=== PATIENT | female | born 1985 | race Caucasian/White ===

== ENCOUNTER 2018-10-14 20:19 | Inpatient (IN) | payer MEDICAID, SELFPAY ==
[2018-10-14 20:57] VITALS: BMI 33.3
[2018-10-14 22:04] LABS: Amnisure Test RUPTURE DETECTED (No Rupture)
[2018-10-14 22:06] LABS: Amnisure Internal Control QC ACCEPTABLE (ACCEPTABLE)
[2018-10-14] MEDS ORDERED: Magnesium Sulfate 20 GM/WATER 500 ML BAG IVPB SCH (22:30)
[2018-10-14] MEDS ORDERED: Calcium Gluconate 4.6 MEQ in Sodium Chloride 0.9% 100 ML IVPB PRN (22:59)
[2018-10-14 23:07] LABS: Hemoglobin 12.6 g/dL (12.0-16.0); Mean Corpuscular HGB CONC 33.8 g/dL (32.0-36.0); Mean Corpuscular Hemoglobin 28.9 pg (27.0-31.0); Mean Corpuscular Volume 85.6 fL (78.0-98.0); Mean Platelet Volume 8.3 fL (7.4-10.4); Platelet Count 280 thou/uL (130-400); Red Blood Cell (RBC) Count 4.34 mill/uL (4.20-5.40); White Blood Cell (WBC) Count 13.4 thou/uL (4.8-10.8)
--- NOTE | 2018-10-14 23:08 | ULT ---
ULTRASOUND OBSTETRICAL LIMITED: 10/14/18 at 9:54 p.m. HISTORY: 33-year-old female in early trimester of presents with premature rupture of membranes. Dr. Marie was present during the scanning and is aware of all the findings. FINDINGS: number: Fisher. lie: Transverse, with head to maternal right. Placenta: Posterior. No placenta previa. In the early images, there is a large soft tissue-like material at the anterior lower portion of the uterus which initially completely covers the internal cervical os. This may be a hematoma or Buf[place]- Bishop contraction. Initially, the maternal cervix is 5.5 cm in length. It has heterogeneous intermediate and low echogen icity throughout the length of its lumen, which could represent blood clots or mucus plugging. Later, towards the end the study, The soft [id number] material described above, resolves. In it s place, there are a few small, irregularly shaped soft tissue type material fragments surrounded by amniotic fluid just proximal/superior to the internal cervical os. This material probably represents blood clots. Now, there is funneling of amniotic fluid into an open endocervical canal and there are small blood c lots passing into the endocervical canal. Amniotic fluid: ABI = 17 cm. heart rate: 147 bpm. anatomy: Not evaluated. BIOMETRY: BPD 7.1 cm 28w 4d HC 26.6 cm 29w 0d AC 25.6 cm 29w 5d FL 5.3 cm 29w 0d AUA: 28w 5d EDC: 01/01/2019. LMP: 04/06/2018. Gestational age by LMP: 27w 2d EFW: 1323 g +/- 196 g (2 lb, 15 oz +/- 7 oz). IMPRESSION: 1. Early third trimester intrauterine gestation. 2. Progression of changes during the examination, ending in opening of endocervical canal with f unneling, and passage of blood clots and amniotic fluid. 3. Posterior placenta. No placenta previa. 4. lie: Transverse. 5. Estimated gestational age of 28 weeks 5 days. POS: [facility]
[2018-10-14] MEDS ORDERED: Azithromycin 250 MG TAB PO SCH (23:15)
[2018-10-14] MEDS: Betamet Acet/Betamet Na Ph 30 MG/5 ML VIAL IM SCH (23:18)
[2018-10-14] MEDS: ceFAZolin Sodium 1 GM/Dextrose 50 ML BAG IVPB SCH (23:27)
[2018-10-14 23:41] LABS: HBSAg Index 0.17 S/CO (0-0.99); Hep B Surf Ag Non-Reactive S/CO (NonReactive); Syphilis Antibody Nonreactive (Nonreactive); Syphilis Antibody Index 0.04 S/CO (<1.00 Non-Reactive)
[2018-10-14] MEDS ORDERED: Erythromycin 250 MG in Sodium Chloride 0.9% 250 ML 250 ML IVPB SCH (23:59)
[2018-10-15] MEDS: Magnesium Sulfate 20 gm/500 ml 20 GM/500 ML BAG IVPB SCH ×2 (07:21→21:40)
[2018-10-15] MEDS: ceFAZolin Sodium 1 GM/Dextrose 50 ML BAG IVPB SCH ×3 (07:21→23:59)
--- NOTE | 2018-10-15 08:02 | HP ---
PRIMARY PROVIDER: [facility]. CHIEF COMPLAINT: Leakage of fluid. HISTORY OF PRESENT ILLNESS: The patient is a 33-year-old G4, P2 female with an intrauterine at 27 weeks and 2 days, who is presenting to Labor and Delivery with complaints of leakage of fluid since about 9 o'clock this morning. The patient reports that she has been having intermittent leakage of fluid of clear watery fluid. She was seen this evening at her primary care provider's location [facility], where she was noted to have a positive AmniSure test. The patient reports that she has been experiencing some "[place] Bishop contractions." She denies any painful contractions or worsening progression of her contractions. The patient denies vaginal bleeding. She denies any recent illness, fever, fall, headache, chest pain, shortness of breath, nausea, vomiting, diarrhea, or constipation. She denies hip problems, knee problems, or muscle weakness. She denies vaginal bleeding or urinary urgency. PAST MEDICAL HISTORY: Hypothyroidism and anemia. PAST SURGICAL HISTORY: Noncontributory. ALLERGIES: PENICILLIN. SOCIAL HISTORY: Denies drug, alcohol, or tobacco use. MEDICATIONS: vitamins. OB LABS: Blood type is A negative. Antibody screen is negative. She is rubella immune. Hepatitis B surface antigen is nonreactive. RPR nonreactive. HIV nonreactive. Hemoglobin A1c 5.0. REVIEW OF SYSTEMS: Per HPI. PHYSICAL EXAMINATION: VITAL SIGNS: Blood pressure 129/84, heart rate of 93, respiratory rate of 20, and temperature 98.2. GENERAL: She appears to be in no acute distress. She is alert, oriented, cooperative, and pleasant to interact with. HEAD: Normocephalic and atraumatic. LUNGS: Clear to auscultation bilaterally. HEART: Regular rate and rhythm. ABDOMEN: Soft, gravid, and nontender. EXTREMITIES: Nontender and nonedematous. PELVIC: Her perineum on exam is moist. Vagina is moist with no pulling at time of exam. Cervix is visibly closed. Cervical exam not performed. heart tracing. Fetus is noted to be have a baseline in the 140s with moderate long-term variability. Positive accelerations. No decelerations. Tocometer showing irritability. LABORATORY DATA: The patient is noted to have a CBC with a white count of 13.4, hemoglobin of 12.6, hematocrit 37.1, and platelets of 280,000. Her AmniSure test is positive. RPR is nonreactive. Hepatitis B surface antigen nonreactive. Blood type is A negative. Antibody screen is negative. Her VPIII is negative for Trichomonas Gardnerella and Dolores. Ultrasound demonstrates a fetus in vertex presentation with an estimated weight of 2 pounds 15 ounces. Fetus lies transverse and there is no placenta previa. Cervical length is 5.5 cm. The endocervix does show some beaking. ASSESSMENT AND PLAN: The patient is a 33-year-old female, G4, P2, with an intrauterine at 27 weeks and 3 days with evidence of premature rupture of membranes. The patient will be admitted to the hospital for antibiotics for latency. The patient does have an allergy to Ancef, penicillins, and erythromycin, it is not available. She will be receiving azithromycin and Ancef for the course of her latency antibiotics. The patient also is Rh. The patient has also been given steroids for maturity and magnesium for neuroprotection. The patient has no evidence of labor at this time. The patient is Rh negative and will be receiving RhoGAM. The fetus is in transverse lie, at this time, plan for delivery would be by . Job ID: [id number]
[2018-10-15] MEDS ORDERED: Azithromycin 250 MG TAB PO SCH (09:00)
--- NOTE | 2018-10-15 09:09 | PRG ---
DATE OF SERVICE: 10/15/2018 SUBJECTIVE: The patient is a 33-year-old female admitted for premature rupture of membranes at 27 weeks on magnesium for neuroprotection, antibiotics for latency, has received 1 dose of betamethasone. Ultrasound shows a baby with a transverse back down lie to the maternal right. The patient is Rh negative. The patient reports this morning that she felt contractions from time to time, but are not painful. She denies any other abdominal tenderness, discomfort, or bleeding. OBJECTIVE: VITAL SIGNS: This morning; blood pressure is 131/74, heart rate of 103, respiratory rate of 18, and temperature 98.1. GENERAL: She appears to be in no acute distress. She is alert, oriented, cooperative, and pleasant to interact with. HEENT: Head is normocephalic and atraumatic. ABDOMEN: Soft and nontender to palpation. ASSESSMENT AND PLAN: The patient is a 33-year-old female admitted for premature rupture of membranes, on antibiotics, magnesium for latency, betamethasone for lung maturity. In reviewing her records, the patient does have a history of hypothyroidism and had been on thyroid medication in the past. There is no evidence of a TSH drawn during this and we will be drawing it today for screening of this thyroidism. Also, the patient is due for 1-hour Glucola. After discussing this with the patient, she has declined as an alternative. We will be doing Accu-Cheks, fasting, and 2 hours postprandial for the next several days. The patient is Rh negative and will be receiving RhoGAM today. Job ID: [id number]
--- NOTE | 2018-10-15 10:20 | PDOC.EVN ---
Event Note - Event Note Event Note: EGA: 27 weeks 3 days DX: PPROM Patient seen at bedside and case reviewed with Dr Marie this AM at check out ( 0800) Meds: MagSulfate for neuroprotection Ancef and Zmax (out of Erythro and PCN allergy) Celestone (2nd this PM) SONO: EFW about 1200g Back down transverse lie on sono Normal ABI on last sono S. No CTX, doing wel O. PHYSICAL: Vitals reviewed...afebrile. Ut soft, NT Monitots: reactive for EGA, no CTX pattern A/P: 27 week 3 days with PPROM on meds as above: I went over the ACOG and SMFM guidelines with her and family member in details: Staeroids also reviewed, even discussed rescue dose if needed after 1-2 weeks and if labors prior to 34 weeks. Keep mag for now until 10/16 1600 Keep with ABX SCDs in bed All questions answered
[2018-10-15] MEDS: Betamet Acet/Betamet Na Ph 30 MG/5 ML VIAL IM SCH (23:59)
--- NOTE | 2018-10-16 06:29 | PDOC.EVN ---
Event Note - Event Note Event Note: 10/16/18: APU 1 HD 3 EGA 27 weeks 4 days S/P Celestone (last one last PM) Meds: Ancef and Zmax MagSulfate S. Doing well, no CTX, good FM. Would like to get up and shower.. No VB O. VSS afebrile NAD Ut oft, NT Monitors: FHTs on monitor reviewed, 140s, reactive No CTX on [place] A/P: 27 weeks 4 days reviewed with her: 1. Stop ancef today. As erythro is not available, and has PCN allergy...we will start Omnicef po and continue ZMax until 7 days complete (10/21) 2. Mag to stop this AM/noon 3. May remove luz 4. Heplock IV 5. Stop continuous monitor and go to NST QD, FHTs BID 6. Expectant management
[2018-10-16] MEDS ORDERED: Lactated Ringer's 1,000 ML IV SCH (06:30)
[2018-10-16] MEDS ORDERED: Calcium Gluc 4.6 MEQ/10 ML (100 MG/ML) SLOW IVP PRN (06:34)
[2018-10-16] MEDS ORDERED: Magnesium Sulfate 20 gm/500 ml 20 GM/500 ML BAG IVPB SCH (06:45)
[2018-10-16] MEDS: Azithromycin 250 MG TAB PO SCH (09:02)
[2018-10-16] MEDS: Cefdinir 300 MG CAP PO SCH ×2 (09:02→21:07)
[2018-10-16] MEDS: Acetaminophen 500 MG TAB PO PRN (10:15)
[2018-10-16] MEDS ORDERED: Lactinex Tablet PO SCH (20:15)
[2018-10-17 01:25] LABS: Chlamydia by PCR Not Detected (NotDetected); GC by PCR Not Detected (NotDetected)
--- NOTE | 2018-10-17 09:15 | PRG ---
DATE OF SERVICE: 10/17/2018 ANTEPARTUM PROGRESS NOTE SUBJECTIVE: The patient is a 33-year-old female, G4, P2, with an intrauterine at 27 weeks and 5 days, diagnosed with premature rupture of membranes on 10/14/2018. Today, hospital day 4, the patient denies any fever, abdominal pain, or vaginal bleeding. She continued to have intermittent leakage of fluid. OBJECTIVE: VITAL SIGNS: Blood pressure is 123/69, heart rate of 94, respiratory rate of 16, and temperature 98.2. GENERAL: She appears to be in no acute distress. She is alert and oriented, cooperative, and pleasant to interact with. ABDOMEN: Soft, nontender to palpation. Most recent heart tracing demonstrates the fetus with a baseline in the 140s with moderate long-term variability and appropriate for a 27-week gestation. ASSESSMENT AND PLAN: The patient is a 33-year-old multiparous female with an intrauterine at 27 weeks and 5 days, who is now on hospital day 4. She is status post betamethasone for lung maturity, magnesium for neuroprotection, and currently on azithromycin and Omnicef for latency as the patient is allergic to penicillin and the hospital is out of erythromycin. Fetus is reassuring for gestational age. The patient has been given RhoGAM also for her Rh negative status. The patient was due for a Glucola, which she has declined; however, Accu-Cheks have been elevated but acceptable given the recent use of steroids. Plan at this time is to repeat a series of Accu-Cheks in about a week in place of a Glucola challenge. The patient will continue in-house management for the foreseeable future. There is no evidence of labor or infection or abruption at this time. Job ID: [id number]
[2018-10-17] MEDS: Prenatal Vitamin 1 TAB PO SCH (10:18)
[2018-10-17] MEDS: Azithromycin 250 MG TAB PO SCH (10:18)
[2018-10-17] MEDS: Cefdinir 300 MG CAP PO SCH ×2 (10:18→21:25)
[2018-10-17] MEDS: Lactinex Tablet PO SCH (10:18)
--- NOTE | 2018-10-18 06:46 | PDOC.EVN ---
Event Note - Event Note Event Note: S: Doing well. Continued leaking overnight. Denies pain, bleeding, ctx. +FM O: AFVSS Gen - AAO, NAD Abd - soft, gravid, NTTP Ext - no edema A/P: 33 y/o at 27w6d, HD5. Doing well without complaints. Continue omnicef and zithromax.
[2018-10-18] MEDS ORDERED: Azithromycin 250 MG TAB ONE (10:04)
[2018-10-18] MEDS ORDERED: Prenatal Vitamin 1 TAB ONE (10:06)
[2018-10-18] MEDS ORDERED: Docusate Calcium (SURFAK) 240 MG CAP ONE (10:15)
[2018-10-18] MEDS: Lactinex Tablet PO SCH (10:20)
[2018-10-18] MEDS: Azithromycin 250 MG TAB PO SCH (10:20)
[2018-10-18] MEDS: Cefdinir 300 MG CAP PO SCH ×3 (10:20→20:56)
[2018-10-18] MEDS: Prenatal Vitamin 1 TAB PO SCH (10:20)
[2018-10-18] MEDS ORDERED: Docusate 100 MG CAP PO PRN (13:44)
[2018-10-18] MEDS ORDERED: Docusate Calcium (SURFAK) 240 MG CAP PO SCH (13:45)
--- NOTE | 2018-10-18 17:40 | PDOC.EVN ---
Event Note - Event Note Event Note: @1740 NST check EGA 27 weeks 6 days NST appropriate for age
--- NOTE | 2018-10-18 20:39 | PDOC.EVN ---
Event Note - Event Note Event Note: Patient seen at bedside Stable...no CTX No fevers Plan reviewed....continue ABX for PPROM until 10/21 (7 days)
[2018-10-18] MEDS: Docusate Calcium (SURFAK) 240 MG CAP PO SCH (20:55)
--- NOTE | 2018-10-19 04:54 | PDOC.EVN ---
Event Note - Event Note Event Note: HD4: PPROM EGA: 28 weeks 0 days Meds: Omnicef/Zmax until 10/21 S. Resting, still with some leakage O. VSS afebrile...vitals reviewed NST yesterday appropriate for age, no decels A/P: 28 weeks 0 days, multip, with PPROM...s/p Steroids and mag for neuroprotection: 1. Continue ABX until 10/21, no current evidence metritis/IAI 2. If labors prior to 32 weeks, restart Mag for neuroprotection 3. Last sono= back down tranverse lie; resono if labors to check presentation.
[2018-10-19] MEDS: Azithromycin 250 MG TAB PO SCH (10:41)
[2018-10-19] MEDS: Cefdinir 300 MG CAP PO SCH ×2 (10:41→20:59)
[2018-10-19] MEDS: Prenatal Vitamin 1 TAB PO SCH (10:41)
[2018-10-19] MEDS: Lactinex Tablet PO SCH (10:42)
[2018-10-19] MEDS: Docusate Calcium (SURFAK) 240 MG CAP PO SCH ×2 (10:43→20:59)
--- NOTE | 2018-10-20 08:05 | PDOC.EVN ---
Event Note - Event Note Event Note: S: Doing well without complaints. No leaking until this morning and only a small amount. Denies fever, chills, abdominal pain, ctx, VB or other concerns. +FM. O: AFVSS Gen - AAO, NAD Abd - gravid, NTTP Ext - no edema NST pending. A/P: 33 y/o at 28w1d with PPPROM, HD5. Continue Omnicef/Azithromycin until 10/21.
[2018-10-20] MEDS: Cefdinir 300 MG CAP PO SCH ×2 (10:01→21:05)
[2018-10-20] MEDS: Azithromycin 250 MG TAB PO SCH (10:01)
[2018-10-20] MEDS: Docusate Calcium (SURFAK) 240 MG CAP PO SCH ×2 (10:02→21:05)
[2018-10-20] MEDS: Prenatal Vitamin 1 TAB PO SCH (10:02)
[2018-10-20] MEDS: Lactinex Tablet PO SCH (10:06)
[2018-10-21] MEDS: Lactinex Tablet PO SCH (09:14)
[2018-10-21] MEDS: Azithromycin 250 MG TAB PO SCH (09:14)
[2018-10-21] MEDS: Prenatal Vitamin 1 TAB PO SCH (09:15)
[2018-10-21] MEDS: Cefdinir 300 MG CAP PO SCH (09:15)
[2018-10-21] MEDS: Docusate Calcium (SURFAK) 240 MG CAP PO SCH (09:15)
--- NOTE | 2018-10-21 09:34 | PRG ---
DATE OF SERVICE: 10/21/2018 SUBJECTIVE: The patient is a 33-year-old female with an intrauterine at 28 weeks and a day, who is now hospital day 8, for premature rupture of membranes. The patient is status post betamethasone antibiotics for latency and magnesium for neuroprotection. The patient reports this morning that she has been feeling well. Denies any uterine contractions, abdominal pain, or vaginal bleeding. She reports that she has been having very minimal leakage of fluid over the last 24 hours. OBJECTIVE: VITAL SIGNS: Blood pressure 117/75, heart rate of 104, respiratory rate 16, temperature 98. GENERAL: She appears to be in no acute distress. She is alert, oriented, cooperative, and pleasant to interact with. ABDOMEN: Soft and nontender. Gravid. EXTREMITIES: Nontender, nonedematous. DIAGNOSTIC DATA: heart tracing shows a baseline in the 150s with moderate long-term variability positive 15 x 15 accelerations and no decelerations. Tocometer is without contractions. ASSESSMENT AND PLAN: The patient is a 33-year-old female with an intrauterine at 28 weeks and a day with a diagnosis of premature rupture of membranes. We will continue in-house management at this time. Fetus has a category 1 tracing. Job ID: [id number]
--- NOTE | 2018-10-21 13:56 | PDOC.EVN ---
Event Note - Event Note Event Note: NST reviewed: Appropriate for EGA of 28 weeks..no decels, rate of 150-160. rate occasionally 170s due to accels...afebrile. At bedside. Progress note in chart
[2018-10-22] MEDS: Docusate Calcium (SURFAK) 240 MG CAP PO SCH ×3 (04:41→21:57)
--- NOTE | 2018-10-22 07:11 | PDOC.EVN ---
Event Note - Event Note Event Note: 28 weeks 3 days L&D Bed 10 HD8 S. Stable...no new complaints, states leaking less O. VSS afebrile A/P: continue in house OBS for PPROM...s/p celestone and oral ABX x 7 days Back down transverse lie last sono
[2018-10-22] MEDS: Prenatal Vitamin 1 TAB PO SCH (09:56)
[2018-10-22] MEDS: Lactinex Tablet PO SCH (09:56)
--- NOTE | 2018-10-23 01:05 | PDOC.EVN ---
Event Note - Event Note Event Note: 28 4/7 weeks. Sleeping. FHTs reasssuring earlier in shift. VSS. AF. A: PSROM s/p steroids and ABX. P: Continue present management, deliver for labor, chorioamnionitis or concern.
[2018-10-23] MEDS: Docusate Calcium (SURFAK) 240 MG CAP PO SCH ×2 (08:53→22:04)
[2018-10-23] MEDS: Prenatal Vitamin 1 TAB PO SCH (08:53)
--- NOTE | 2018-10-23 13:07 | ULT ---
SONOGRAPHIC BIOPHYSICAL PROFILE EXAM: History: Pre-mature rupture of membranes. FINDINGS: Good tone and breathing and gross movements were demonstrated. Amniotic fluid index is 10 .2. IMPRESSION: Sonographic biophysical profile score is 8/8. POS: [facility]
[2018-10-23] MEDS: Lactinex Tablet PO SCH (15:23)
--- NOTE | 2018-10-24 08:38 | PRG ---
DATE OF SERVICE: 10/24/2018 SUBJECTIVE: The patient is a 33-year-old female with an intrauterine at 28 weeks and 5 days, who is here in the hospital for expectant management and routine monitoring due to premature rupture of membranes. The patient denies abdominal pain or uterine contractions. She reports she continues to have a small amount of leaking of fluid. The patient also denies asymmetric swelling. A BPP was performed yesterday, which was 8/8 with fluid level at 10 cm down from 17 at time of admission. OBJECTIVE: VITAL SIGNS: Blood pressure 133/73, temperature 98.0, pulse of 107, respiratory rate of 18. GENERAL: She appears to be in no acute distress. She is alert, oriented, cooperative, and pleasant to interact with. HEAD: Normocephalic, atraumatic. ABDOMEN: Soft, gravid, and nontender. EXTREMITIES: Nontender, nonedematous, and symmetrical. ASSESSMENT AND PLAN: The patient is a 33-year-old female with an intrauterine at 28 weeks and 5 days, here for premature rupture of membranes, status post betamethasone, status post antibiotics for latency and status post magnesium for neuro protection. We will continue expectant management until we were worried that there were signs of abruption, labor, or infection, which she does not have at this time. Job ID: [id number]
[2018-10-24] MEDS: Lactinex Tablet PO SCH (09:16)
[2018-10-24] MEDS: Docusate Calcium (SURFAK) 240 MG CAP PO SCH ×2 (09:16→21:30)
[2018-10-24] MEDS: Prenatal Vitamin 1 TAB PO SCH (09:16)
--- NOTE | 2018-10-24 16:42 | PDOC.EVN ---
Event Note - Event Note Event Note: Patient stable to move to PP at this time. Vtx on BPP performed yesterday.
--- NOTE | 2018-10-25 07:59 | PDOC.EVN ---
Event Note - Event Note Event Note: S: Doing well this morning, much happier in larger room. No VB, ctx. Occasional cramping. Continues to leak a small amount. +FM. No new complaints. O: AFVSS Gen - AAO, NAD Abd - soft, gravid, NTTP A/P: HD10 with P3ROM. S/p celestone, antibiotics. Continue expectant management at this time.
--- NOTE | 2018-10-25 08:01 | PDOC.EVN ---
Event Note - Event Note Event Note: After long discussion with patient, family, and nurse management, the patient was moved back to previous room with understanding that she may need to move to a smaller room at any point.
[2018-10-25] MEDS: Acetaminophen 500 MG TAB PO PRN (08:08)
[2018-10-25] MEDS: Lactinex Tablet PO SCH (09:33)
[2018-10-25] MEDS: Prenatal Vitamin 1 TAB PO SCH (09:33)
[2018-10-25] MEDS: Docusate Calcium (SURFAK) 240 MG CAP PO SCH ×2 (09:33→21:30)
--- NOTE | 2018-10-26 08:36 | PRG ---
DATE OF SERVICE: 10/26/2018 ANTEPARTUM NOTE SUBJECTIVE: The patient is a 33-year-old female who was admitted at 28 weeks for premature rupture of membranes. She is now hospital day 11 with a gestational age of 29 weeks and zero day today. The patient is status post betamethasone and antibiotics. The patient reports today that she is tolerating p.o., voiding on her own, has no abdominal pain. She does report that she has had some pink stains when she wiped after going to the bathroom occasionally. OBJECTIVE: VITAL SIGNS: Blood pressure 124/73, temperature 98.6, pulse of 90, respiratory rate of 20. GENERAL: She appears to be in no acute distress. She is alert, oriented, cooperative, pleasant to interact with. HEAD: Normocephalic, atraumatic. ABDOMEN: Soft, gravid, and nontender. EXTREMITIES: Nontender, nonedematous. heart tracing was reviewed and found to be in the 150s with moderate long-term variability and positive 10 x 10 and 15 x 15 accelerations with no decelerations and tocometer shows no evidence of regular contractions. ASSESSMENT AND PLAN: The patient is a 33-year-old female, now hospital day 11, here for expectant management with premature rupture of membranes, status post betamethasone and antibiotics. The patient's fetus is vertex and has a category one tracing. Job ID: [id number]
[2018-10-26] MEDS: Prenatal Vitamin 1 TAB PO SCH (08:53)
[2018-10-26] MEDS: Lactinex Tablet PO SCH (08:53)
[2018-10-26] MEDS: Docusate Calcium (SURFAK) 240 MG CAP PO SCH ×2 (08:53→20:43)
--- NOTE | 2018-10-27 07:12 | PDOC.EVN ---
Event Note - Event Note Event Note: Resting, no complaints. VSS AF Abdomen soft, NT. NSTs are reassuring. A: 28 wks, PSROM, s/p celestone x2, MgS04, and po ABX x 7 days. P:Cont. expectant management. Deliver for labor, chorioamnionitis or concern.
[2018-10-27] MEDS: Prenatal Vitamin 1 TAB PO SCH (09:07)
[2018-10-27] MEDS: Docusate Calcium (SURFAK) 240 MG CAP PO SCH ×2 (09:07→20:58)
[2018-10-27] MEDS: Lactinex Tablet PO SCH (09:07)
--- NOTE | 2018-10-28 08:04 | PRG ---
DATE OF SERVICE: 10/28/2018 TIME OF SERVICE: 0730 hours. SUBJECTIVE: The patient is a G3, P2, at 29 weeks and 2 days with rupture of membranes for 13 days. She has undergone corticosteroid therapy, magnesium sulfate for tocolysis and neuroprotection, and antibiotics for latency with rupture of membranes. The patient is resting comfortably and has no complaints. She reports an active fetus and occasional leakage of fluid. OBJECTIVE: VITAL SIGNS: Temperature is 98.3, T-max 98.3, pulse 98, respirations 18, and blood pressure 122/68. ABDOMEN: Soft and nontender without rebound or guarding. Perineum is dry at this time. EXTREMITIES: No clubbing, cyanosis, or edema. Nonstress test performed on 10/27, was interpreted by myself as reactive category I. IMPRESSION: A 29 weeks and 2 days with prolonged rupture of membranes, now in latency without evidence of labor, status post steroids, status post antibiotics for latency. PLAN: 1. Continued hospitalization on unit. 2. Repeat biophysical profile today, last one was done on 10/23. 3. Expectant management until 34 weeks' gestation, when if labor has not onset and fetus is in vertex presentation, we will proceed with induction of labor. 4. Repeat corticosteroids on or about 11/14/2018, 4 weeks post initiation. Job ID: [id number]
[2018-10-28] MEDS: Docusate Calcium (SURFAK) 240 MG CAP PO SCH ×2 (09:01→21:45)
[2018-10-28] MEDS: Prenatal Vitamin 1 TAB PO SCH (09:01)
--- NOTE | 2018-10-28 09:58 | ULT ---
BIOPHYSICAL PROFILE ULTRASOUND: HISTORY: A 29-week, pre-term, for followup fluid and biophysical profile evaluation. FINDINGS: A single viable intrauterine fetus is noted in breech presentation. Left-sided placenta without evid ence for placenta previa. heart rate 155 beats per minute. Cervical length 4.4 cm. tone, breathing, movements, and amniotic fluid were all evaluated with a biop hysical profile score of 8/8, normal. IMPRESSION: 1. Breech presentation, which is different from examination of 10/23/2018, at which time it was select at [place]. 2. biophysical profile score 8/8. POS: [facility]
[2018-10-28] MEDS: Lactinex Tablet PO SCH (11:11)
--- NOTE | 2018-10-29 08:24 | PRG ---
DATE OF SERVICE: 10/29/2018 ANTEPARTUM PROGRESS NOTE SUBJECTIVE: The patient is a 33-year-old female, here hospital day 13 for premature rupture of membranes, now 29 weeks and 3 days gestation. The patient denies any abdominal tenderness, fever, foul discharge, or bleeding. The patient does report she leaks from time to time still. BPP was performed yesterday and was 8/8 with ABI of 7 and baby has turned to be angel breech. OBJECTIVE: VITAL SIGNS: Blood pressure was 122/68, temperature 98.1, pulse of 98, and respiratory rate of 18. GENERAL: She appears to be in no acute distress. She is alert and oriented, cooperative and pleasant to interact with. HEENT: Head is normocephalic, atraumatic. ABDOMEN: Soft. Fundus is nontender and gravid. EXTREMITIES: Nontender, nonedematous. ASSESSMENT AND PLAN: The patient is hospital day 13 at 29 weeks and 3 days, here for premature rupture of membranes, status post betamethasone and antibiotics. BPP is reassuring, however, baby is now presenting angel breech. Should she experience anything that is necessitating immediate delivery, a will be mode of delivery at this time. I have reviewed with the patient just signs and symptoms of chorioamnionitis as the patient is 2 weeks out and does increase her risk for chorioamnionitis in her present state. Job ID: [id number]
[2018-10-29] MEDS: Prenatal Vitamin 1 TAB PO SCH (08:43)
[2018-10-29] MEDS: Docusate Calcium (SURFAK) 240 MG CAP PO SCH ×2 (08:43→21:18)
[2018-10-29] MEDS: Lactinex Tablet PO SCH (08:43)
--- NOTE | 2018-10-30 07:45 | PDOC.EVN ---
Event Note - Event Note Event Note: S: Patient doing well. No new complaints. Occasional cramping. O: AFVSS Gen - AAO, NAD Abd - soft, gravid, NTTP NST pending A/P: P3ROM, HD#14 s/p celestone s/p antibiotics NST q shift
[2018-10-30] MEDS: Docusate Calcium (SURFAK) 240 MG CAP PO SCH ×2 (09:08→21:06)
[2018-10-30] MEDS: Lactinex Tablet PO SCH (09:08)
[2018-10-30] MEDS: Prenatal Vitamin 1 TAB PO SCH (09:08)
--- NOTE | 2018-10-31 07:10 | PDOC.EVN ---
Event Note - Event Note Event Note: Resting comfortably. VSS AF Abdomen is soft, gravid, NT. NSTs have been reassuring. A/P: 29 5/7 weeks, PSROM s/p steroids, MgS04 and ABX. Cont. expectant mgmt. Deliver for chorioamnionitis, labor or concern.
[2018-10-31] MEDS: Docusate Calcium (SURFAK) 240 MG CAP PO SCH ×2 (10:19→20:59)
[2018-10-31] MEDS: Prenatal Vitamin 1 TAB PO SCH (10:19)
[2018-10-31] MEDS: Lactinex Tablet PO SCH (10:19)
[2018-11-01] MEDS: Acetaminophen 500 MG TAB PO PRN ×2 (02:05→08:01)
--- NOTE | 2018-11-01 07:57 | PDOC.LDPN ---
Labor & Delivery Progress Note - Subjective Subjective: comfortable, loss of fluid (bloody fluid over night x 2, no contractions but some cramping this AM, no fever or chills) - Objective Vital signs reviewed and normal: yes General: NAD, resting Uterine fundus: non tender FHT: category 1 - Assessment (1) 29 to 30 weeks gestation of Code(s): [id number] - Current Visit: Yes Status: Acute Plan: continue plan of care -: 29.6 weeks PPROM, sp latency abx and steroids for FLM. Blood tinged fluid noted in the early hours of the AM, no recent ctx on toco and FHT reassuring. Discussed continue close monitoring for si/sx of labor or other or maternal indications for delivery. BPP today.
[2018-11-01] MEDS: Prenatal Vitamin 1 TAB PO SCH (08:01)
[2018-11-01] MEDS: Docusate Calcium (SURFAK) 240 MG CAP PO SCH ×2 (08:02→21:05)
[2018-11-01] MEDS: Lactinex Tablet PO SCH (09:29)
--- NOTE | 2018-11-01 11:13 | ULT ---
BIOPHYSICAL PROFILE: Date: 11/01/18 HISTORY: Premature rupture of membranes. FINDINGS: Real-time imaging of the pelvis shows a single, viable intrauterine . position is vert ex. The placenta shows no evidence of previa. heart rate is 147 beats/minute. Amniotic fluid index is very reduced with amniotic fluid index of 2.7; however, there is a pocket of fluid that is greater than 2.0 cm. biophysical profile score is as follows: tone = 2 breathing = 2 movements = 2 Amniotic fluid = 2 IMPRESSION: biophysical profile is 8 of a possible 8. Please note that although the amniotic fluid is score d as a 2 because it meets criteria of a pocket of 2.0 cm, it is severely reduced. POS: [facility]
[2018-11-02] MEDS: Acetaminophen 500 MG TAB PO PRN (06:36)
--- NOTE | 2018-11-02 08:36 | PRG ---
DATE OF SERVICE: 11/02/2018 TIME OF SERVICE: 0715 hours. SUBJECTIVE: Ms. Putnam is now G2, P0, at 30 weeks and 0 days with PPROM for approximately 2 weeks. She reports occasional uterine irritability. She has blood-tinged fluid noted that has been stable for the past 24 hours. OBJECTIVE: VITAL SIGNS: Vital signs are stable. The patient remains afebrile. T-max 98.1, blood pressure 118/72, pulse 85, and respirations 18. LUNGS: Clear to auscultation bilaterally. HEART: Regular rate and rhythm. ABDOMEN: Soft and nontender without rebound or guarding. GENITALIA: Vulva without lesions. Vagina: The patient has small amount of bloody clearish fluid on Sarah-Pad. EXTREMITIES: No clubbing, cyanosis, or edema. Nonstress test was carried out yesterday, which was reactive. BPP was 8/8 with vertex presentation with low level of amniotic fluid, but largest pocket was greater than 2 cm. IMPRESSION: 30 weeks and 0 days premature rupture of the membranes, no evidence of active labor, vertex presentation, status post antibiotics and corticosteroids. PLAN: Continue simon rest with daily NSTs. Repeat corticosteroids at four weeks post PPROM. Anticipate spontaneous vaginal delivery of presentation remains vertex. Induction of labor at 34 weeks gestation if no onset of labor prior. Job ID: [id number]
[2018-11-02] MEDS: Lactinex Tablet PO SCH (09:22)
[2018-11-02] MEDS: Docusate Calcium (SURFAK) 240 MG CAP PO SCH ×2 (09:22→21:58)
[2018-11-02] MEDS: Prenatal Vitamin 1 TAB PO SCH (09:22)
[2018-11-03] MEDS: Acetaminophen 500 MG TAB PO PRN ×2 (00:20→08:34)
--- NOTE | 2018-11-03 07:29 | PDOC.EVN ---
Event Note - Event Note Event Note: Resting comfortably. Continues to have leaking with spotting. Active FM. Last BPP on 11/01/18 was 8/8 with 2 cm pocket seen. Vtx presentation. VSS AF NSTs q shift remain reassuring. Assessment: 30 10/06 PSROM s/p steroids, ABX and MgS04. Plan: Cont. expectant mgmt. Deliver for chorioamnionitis, concern.
[2018-11-03] MEDS: Docusate Calcium (SURFAK) 240 MG CAP PO SCH ×2 (08:35→23:06)
[2018-11-03] MEDS: Prenatal Vitamin 1 TAB PO SCH (08:35)
[2018-11-03] MEDS: Lactinex Tablet PO SCH (09:31)
--- NOTE | 2018-11-04 07:55 | PRG ---
DATE OF SERVICE: 11/04/2018 SUBJECTIVE: Ms. Putnam is 33-year-old, now at 30 weeks and 2 days with prolonged rupture of membranes. She has no complaints. She states she has noted somewhat less movement in the last 12 hours. She has had slight vaginal discharge. She has no contractions. OBJECTIVE: VITAL SIGNS: T-max 98.0, pulse 92, respirations 18, blood pressure 118/72. HEENT: Within normal limits. LUNGS: Clear to auscultation bilaterally. HEART: Regular rate and rhythm. PELVIC: Fundus is 29 cm. FHTs are 130s to 140s. Perineum is dry. EXTREMITIES: No clubbing, cyanosis, or edema. IMPRESSION: rupture of membranes with low ABI, doing BPP approximately 2 times a week. PLAN: Continue current course. Anticipate re-dosing steroids in mid October if remains . Anticipate repeat BPP on 11/05. Job ID: [id number]
[2018-11-04] MEDS: Docusate Calcium (SURFAK) 240 MG CAP PO SCH ×2 (09:30→21:57)
[2018-11-04] MEDS: Prenatal Vitamin 1 TAB PO SCH (09:30)
[2018-11-04] MEDS: Lactinex Tablet PO SCH (13:29)
--- NOTE | 2018-11-04 17:34 | PDOC.EVN ---
Event Note - Event Note Event Note: Long discussion with pt. Now 30 2/7 weeks. Tearful, anxious over current situation and who received for session of chemotherapy for testicular cancer. Nature of expectant management with PSROM, steroids x2, antibiotics and MgSO4 neuroprotection reviewed. Reassured as to present situation. Cont. present management.
--- NOTE | 2018-11-05 07:22 | PDOC.EVN ---
Event Note - Event Note Event Note: Resting comfortably. VSS AF Tracings remain reassuring. A: 30 3/7 weeks, PROM, s/p steroids, ABX and MgS04 P: Cont. presnt management, for BPP today.
--- NOTE | 2018-11-05 08:43 | ULT ---
BIOPHYSICAL PROFILE: History: History of pre-term rupture or membranes. Comparison: 11-01-18 FINDINGS: Amniotic fluid index has decreased to 1.1 consistent with severe oligohydramnios. tone, b reathing, and movement were all within normal limits. biophysical profile score is 6 out of 8 with abnormal low ABI of 1.1, evidence for very severe oligohydramnios. A verbal report was given to nurse Diaz by Yajaira Douglass, the electroneurodiagnostic technologist at the time of the study. POS: [facility]
[2018-11-05] MEDS: Prenatal Vitamin 1 TAB PO SCH (09:21)
[2018-11-05] MEDS: Docusate Calcium (SURFAK) 240 MG CAP PO SCH (09:21)
[2018-11-05] MEDS: Lactinex Tablet PO SCH (09:21)
--- NOTE | 2018-11-06 08:07 | PRG ---
DATE OF SERVICE: 11/06/2018 SUBJECTIVE: The patient is a 33-year-old female, who was admitted to the hospital on 10/15/2018. She now is 30 weeks and 3 days , status post steroids and antibiotics for latency. Over the weekend, the patient had experienced significant bleeding that has since drastically reduced. This morning, the patient reports that she does still have some pink-tinged fluid leaking and a little bit of cramping , but nothing that was significant to keep her awake at night. The patient denies fever. Denies feeling ill. OBJECTIVE: VITAL SIGNS: This morning, blood pressure 140/73, heart rate of 82, respiratory rate of 18, and temperature 98.7. GENERAL: She appears to be in no acute distress. She is alert and oriented, cooperative and pleasant to interact with. HEENT: Head is normocephalic, atraumatic. ABDOMEN: Soft, gravid, and nontender to palpation. EXTREMITIES: Nontender, nonedematous. Most recent NST last night showed the fetus in the 150s with moderate long-term variability, positive 15 x 15 accelerations, no decelerations. Tocometer is not showing any contraction pattern. BPP was performed yesterday and was noted to be 6/8 2 off for for fluid, fetus cephalic. ASSESSMENT AND PLAN: The patient is a 33-year-old female, who now is hospital day #23 with an intrauterine now at 30 weeks and 4 days. NST is reactive. There are no signs of acute abruption, though the patient has probably experienced partial small abruption that has since resolved. There is no evidence of infection or distress or labor. We will continue in-house hospital expectant management. Fetus is vertex at this time. Job ID: [id number] [facility]
[2018-11-06] MEDS: Lactinex Tablet PO SCH (09:38)
[2018-11-06] MEDS: Prenatal Vitamin 1 TAB PO SCH (09:38)
--- NOTE | 2018-11-07 06:11 | PDOC.EVN ---
Event Note - Event Note Event Note: 11/07/18: EGA 30 weeks 4 days DX: PPROM, cephalic last check; oligo S. No further VB, doing well. Good FM o. AFEBRILE...no ctx no VB A/P: PPROM...continue inhouse obs. s/p steroids. Consider redose steroids if labors under 34 weeks
[2018-11-07] MEDS: Lactinex Tablet PO SCH (09:06)
[2018-11-07] MEDS: Docusate Calcium (SURFAK) 240 MG CAP PO SCH (09:16)
[2018-11-07] MEDS: Prenatal Vitamin 1 TAB PO SCH (09:16)
[2018-11-08] MEDS: Docusate Calcium (SURFAK) 240 MG CAP PO SCH ×3 (04:16→16:46)
--- NOTE | 2018-11-08 07:39 | PDOC.EVN ---
Event Note - Event Note Event Note: Doing well this morning. Had some ctx yesterday but nothing regular. Continues to have minimal leaking and spotting. +FM. O: AFVSS Gen - AAO, NAD Abd - gravid, NTTP A/P: HD23, now 30w5d. S/p celestone, abx. Continue expectant management. NST q shift.
[2018-11-08] MEDS: Prenatal Vitamin 1 TAB PO SCH (11:36)
[2018-11-08] MEDS: Lactinex Tablet PO SCH (11:36)
[2018-11-09] MEDS: Docusate Calcium (SURFAK) 240 MG CAP PO SCH (18:04)
[2018-11-09] MEDS: Prenatal Vitamin 1 TAB PO SCH (18:04)
[2018-11-09] MEDS: Lactinex Tablet PO SCH ×2 (18:04→20:24)
[2018-11-10] MEDS: Docusate Calcium (SURFAK) 240 MG CAP PO SCH ×2 (04:09→08:37)
--- NOTE | 2018-11-10 07:42 | PDOC.EVN ---
Event Note - Event Note Event Note: S: Doing well this morning. No complaints. No bleeding, cramping or other concerns. O: AFVSS Gen -AAO, NAD Abd - gravid, NTTP Ext - no edema NST pending this morning; yesterday AGA reactive A/P: 31w0d with P3ROM, now HD 25. Continue expectant management.
[2018-11-10] MEDS: Lactinex Tablet PO SCH (08:37)
[2018-11-10] MEDS: Prenatal Vitamin 1 TAB PO SCH (08:37)
--- NOTE | 2018-11-10 09:48 | PRG ---
DATE OF SERVICE: 11/09/2018 SUBJECTIVE: The patient is a 33-year-old female who is now hospital day 26, admitted for premature rupture of membranes at 27 weeks. The patient is status post steroids, antibiotics, and magnesium for neuroprotection. The patient's course has been complicated by isolated incident of bleeding, which has since resolved to just some blood-stained fluid when she is leaking. The patient has no complaints. She denies any abdominal pain, vaginal bleeding, fever, or regular contractions. PHYSICAL EXAMINATION: VITAL SIGNS: Blood pressure 127/64, heart rate of 83, respiratory rate 18, and temperature 97.8. GENERAL: She appears to be in no acute distress. She is alert, oriented, cooperative, and pleasant to interact with. HEENT: Head is normocephalic, atraumatic. ABDOMEN: Gravid, soft, nontender. EXTREMITIES: Nontender, nonedematous. Her heart tracing demonstrates a fetus with a baseline in the 140s with moderate long-term variability, positive 15 x 15 accelerations, no decelerations. No contractions noted on the monitor. Her last BPP was 6/8 performed on 11/05/2018 with two of her fluid at 1 cm. ASSESSMENT AND PLAN: The patient is a 33-year-old female with an intrauterine at 31 weeks, admitted for premature rupture of membranes. There is no evidence of labor, abruption, or infection at this time. We will continue in-house management. Job ID: [id number]
--- NOTE | 2018-11-10 13:49 | ULT ---
ULTRASOUND OB LIMITED ULTRASOUND BIOPHYSICAL PROFILE: HISTORY: premature rupture of membranes. COMPARISON: [facility] 11/05/2018. FINDINGS: Biophysical profile score is 6/8 with a score of 0 for amniotic fluid. position is vertex and placenta is anterior. Severe oligohydramnios. The heart rate is documented at 153 b.p.m. Fet al weight is 4 pounds 3 ounces, 69th percentile. BIOMETRY: Biparietal diameter 8.03 cm, 32 weeks 2 days Head circumference 29.23 cm, 32 weeks 2 days Abdominal circumference 28.41 cm, 32 weeks, 3 days Femur length 6.01 cm, 31 weeks 2 days The estimated weight is 4 pounds 3 ounces, 69th percentile. Single live intrauterine , average ultrasound age 32 weeks 1 day, estimated date of delivery 01/04/2019. IMPRESSION: Viable intrauterine with minimal amniotic fluid with biophysical profile score of 6/8, scor ing 0 for amniotic fluid. POS: [facility]
[2018-11-11] MEDS: Prenatal Vitamin 1 TAB PO SCH (09:00)
[2018-11-11] MEDS: Docusate Calcium (SURFAK) 240 MG CAP PO SCH ×2 (09:00→23:40)
[2018-11-11] MEDS: Lactinex Tablet PO SCH (09:00)
--- NOTE | 2018-11-11 09:05 | PRG ---
DATE OF SERVICE: 11/11/2018 SUBJECTIVE: The patient is a 33-year-old female, hospital day 28, admitted for premature rupture of membranes in her 27th week of . The patient has no complaints. Yesterday, we performed a growth ultrasound and BPP. The patient was noted to have a fetus in 69th percentile and a BPP of 6/8 with an ABI of 2. The patient this morning has no complaints. She denies any vaginal bleeding, any uterine contractions, any fever or state of illness. OBJECTIVE: VITAL SIGNS: Blood pressure 129/76, heart rate is 71, respiratory rate 16, and temperature 98.2. GENERAL: She appears to be in no acute distress. She is alert, oriented, cooperative, and pleasant to interact with. HEENT: Head is normocephalic and atraumatic. ABDOMEN: Soft, gravid, and nontender. EXTREMITIES: Nontender and nonedematous. NST is performed noted to have a baseline in the 140s with moderate long-term variability, positive 15 x 15 accelerations, no decelerations. ASSESSMENT AND PLAN: The patient is a 33-year-old female, now hospital day 28 with an intrauterine at 31 weeks and 2 days. The patient is status post steroids, antibiotics for latency, and magnesium for seizure prophylaxis. We will continue in-house management. There is no evidence of abruption, labor, or chorioamnionitis at this time. Fetus has a category 1 tracing. Fetus has a reassuring BPP and reactive NST. Fetus is growing appropriately. We will continue in-house management until indication for delivery. Job ID: [id number]
--- NOTE | 2018-11-12 07:52 | PDOC.EVN ---
Event Note - Event Note Event Note: S: Doing well this morning, no new complaints. O: AFVSS Gen - AAO, NAD Abd - Gravid, NTTP Ext - no edema A/P: 31w3d with P3ROM, HD 29. Continue expectant management until 34 weeks or before then if indicated.
[2018-11-12] MEDS: Prenatal Vitamin 1 TAB PO SCH (09:45)
[2018-11-12] MEDS: Lactinex Tablet PO SCH (09:45)
[2018-11-13] MEDS: Docusate Calcium (SURFAK) 240 MG CAP PO SCH ×2 (04:43→11:51)
--- NOTE | 2018-11-13 08:08 | PRG ---
DATE OF SERVICE: 11/13/2018 [facility] SUBJECTIVE: The patient is hospital day 29 for premature rupture of membranes and is now 31 weeks and 4 days. The patient has no complaints. She denies fever, abdominal pain, contractions, or bleeding. She continues to leak periodically. OBJECTIVE: VITAL SIGNS: Blood pressure 125/64, heart rate of 81, respiratory rate 18, and temperature 98.3. GENERAL: She appears to be in no acute distress. She is alert and oriented. Cooperative and pleasant to interact with. HEENT: Head is normocephalic, atraumatic. ABDOMEN: Gravid and nontender. EXTREMITIES: Nontender and nonedematous. heart tracing, NST shows a baseline in the 140s with moderate long-term variability with 15 x 15 accelerations and an isolated deceleration by 20 points lasting 10 to 15 seconds. There were no contractions seen on the monitor. ASSESSMENT AND PLAN: The patient is a 33-year-old female, hospital day 29, admitted to the hospital for management of premature rupture of membranes. Continue in-house management. Job ID: [id number]
[2018-11-13] MEDS: Lactinex Tablet PO SCH (09:52)
[2018-11-13] MEDS: Prenatal Vitamin 1 TAB PO SCH (11:51)
[2018-11-14] MEDS: Docusate Calcium (SURFAK) 240 MG CAP PO SCH ×3 (01:27→09:12)
--- NOTE | 2018-11-14 06:23 | PDOC.EVN ---
Event Note - Event Note Event Note: EGA 31 weeks 5 days Doing well Still with some leakage No VB but some blood tinged dsh at times Still no fever FHTs ok DX: PPROM Plan: expectant care until labors or fever or 34 weeks Cephalic last check If labors prior to 34 weeks, repeat steroids
[2018-11-14] MEDS: Lactinex Tablet PO SCH (09:12)
[2018-11-14] MEDS: Prenatal Vitamin 1 TAB PO SCH (09:12)
[2018-11-15] MEDS: Docusate Calcium (SURFAK) 240 MG CAP PO SCH ×2 (01:44→09:01)
--- NOTE | 2018-11-15 07:14 | PDOC.EVN ---
Event Note - Event Note Event Note: 31 6/7 weeks. No complaints. VSS AF Abdomen NT Monitoring remains reassuring, vtx at last scan. Plan: Cont. expectant mgmt, deliver for chorioamnionitis, concern or labor.
[2018-11-15] MEDS: Prenatal Vitamin 1 TAB PO SCH ×2 (08:58→09:01)
[2018-11-15] MEDS ORDERED: Fluconazole 100 MG TAB PO SCH (09:00)
[2018-11-15] MEDS: Lactinex Tablet PO SCH (09:47)
[2018-11-15] MEDS ORDERED: Calcium Carbonate 500 MG ChewTAB PO PRN (21:59)
[2018-11-16] MEDS: Docusate Calcium (SURFAK) 240 MG CAP PO SCH ×3 (03:58→22:08)
--- NOTE | 2018-11-16 07:50 | PDOC.LDPN ---
Labor & Delivery Progress Note - Subjective Subjective: comfortable - Objective Vital signs reviewed and normal: yes Abnormal vital signs: mild range BPs overnight General: NAD, resting Uterine fundus: tender to palpation -: No complaints. New mild range BPs overnight. CBC, CMP, urine pr:cr pending. Asymptomatic. AM NST pending. Continue expectant management at this time.
[2018-11-16 08:09] LABS: #Eosinphils 0.1 thou/uL (0.0-0.7); #Lymphocytes 1.8 thou/uL (1.20-3.40); #Monocytes 0.7 thou/uL (0.11-0.59); #Neutrophils 8.3 thou/uL (1.40-6.50); %Basophils 0.1 % (0.0-1.0); %Eosinophils 1.2 % (0.0-10.0); %Lymphocytes 16.3 % (21.0-51.0); %Monocytes 6.1 % (0.0-10.0); %Neutrophils 76.4 % (42.0-75.0); Hemoglobin 12.2 g/dL (12.0-16.0); Mean Corpuscular HGB CONC 34.1 g/dL (32.0-36.0); Mean Corpuscular Hemoglobin 29.9 pg (27.0-31.0); Mean Corpuscular Volume 87.6 fL (78.0-98.0); Mean Platelet Volume 8.4 fL (7.4-10.4); Platelet Count 278 thou/uL (130-400); RBC Distribution Width 11.4 % (11.5-14.5); Red Blood Cell (RBC) Count 4.09 mill/uL (4.20-5.40); White Blood Cell (WBC) Count 10.9 thou/uL (4.8-10.8)
[2018-11-16 08:28] LABS: ALT (SGPT) 9 U/L (8-55); AST (SGOT) 14 U/L (5-34); Albumin 3.4 g/dL (3.5-5.0); Alkaline Phosphatase 236 U/L (40-150); Anion Gap 16 mmol/L (10-20); BUN (Urea Nitrogen) 6 mg/dL (7.0-18.7); Bilirubin, Total 0.2 mg/dL (0.2-1.2); Calc. Creatinine Clearance 197 mL/min (70-130); Calcium 9.4 mg/dL (7.8-10.44); Carbon Dioxide 21 mmol/L (22-29); Chloride 105 mmol/L (98-107); Estimated GFR-MDRD Greater than 90; Globulin 2.8 g/dL (2.4-3.5); Glucose 76 mg/dL (70-105); Potassium 4.1 mmol/L (3.5-5.1); Protein, Total 6.2 g/dL (6.0-8.3); Sodium 138 mmol/L (136-145)
[2018-11-16] MEDS: Lactinex Tablet PO SCH (09:15)
[2018-11-16 10:35] LABS: Creatinine, Urine Less than 20.00 mg/dL (47-110); Protein, Urine Random Quant Less than 10 mg/dL (1-14)
--- NOTE | 2018-11-16 11:21 | PDOC.EVN ---
Event Note - Event Note Event Note: VP3 positive for BV. I will order flagyl now
[2018-11-16] MEDS: metroNIDAZOLE 500 MG TAB PO SCH ×3 (12:36→22:08)
--- NOTE | 2018-11-16 13:12 | PDOC.EVN ---
Event Note - Event Note Event Note: Lab Check: FARZANEH labs wnl from this AM (11/16/18)
--- NOTE | 2018-11-17 06:48 | PDOC.EVN ---
Event Note - Event Note Event Note: [facility] PPROM 32 weeks 1 day Doing well. At bedside now Doing well 120/60s now No VB No CTX Continue to follow. BPP today
--- NOTE | 2018-11-17 09:21 | ULT ---
ULTRASOUND BIOPHYSICAL PROFILE: Date: 11/17/18 HISTORY: Premature rupture of membranes. COMPARISON: Biophysical profile dated 11/10/18. FINDINGS: There is a single, viable intrauterine . There is a biophysical profile score of 6/8, scorin g 0 for amniotic fluid. position is vertex and placenta is anterior. Cervix measures approximately 3.7 cm in length. heart rate documented at 140 beats/minute. IMPRESSION: Biophysical profile score of 6/8, scoring 0 for amniotic fluid. Findings were given to the nurse, Giselle, at the time of exam. CODE CR. POS: [facility]
[2018-11-17] MEDS: Docusate Calcium (SURFAK) 240 MG CAP PO SCH ×3 (09:51→23:00)
[2018-11-17] MEDS: Prenatal Vitamin 1 TAB PO SCH ×3 (09:51→09:56)
[2018-11-17] MEDS: Lactinex Tablet PO SCH (09:52)
[2018-11-17] MEDS: metroNIDAZOLE 500 MG TAB PO SCH ×2 (09:53→23:00)
--- NOTE | 2018-11-18 08:13 | PRG ---
DATE OF SERVICE: 11/18/2018 TIME OF SERVICE: 0737 hours. SUBJECTIVE: The patient is resting comfortably. Reports an active fetus. Denies bleeding or contractions. OBJECTIVE: VITAL SIGNS: Temperature 98.3, pulse 91, respirations 18, blood pressure 130/69. HEENT: Within normal limits. LUNGS: Clear to auscultation bilaterally. HEART: Regular rate and rhythm. ABDOMEN: Soft and nontender. PELVIC: Vulva without lesions. Vagina without discharge. Cervical exam deferred. EXTREMITIES: Without clubbing, cyanosis, or edema. nonstress test was reactive with a heart rate of 140s to 150s baseline. Positive accelerations. No decelerations. Category 1 tracing. LABORATORY DATA: Vaginitis screen was positive for Gardnerella. The patient was placed on metronidazole by Dr. Tipton. CBC on 11/16, revealed a white count of 10.9, hematocrit of 35.8, normal platelet count. Normal basic metabolic panel. Biophysical profile performed on 11/17, at 0700 hours revealed a biophysical profile of 6/8, with 2 off for amniotic fluid. heart rate of 140. Cervical length of 3.7 cm in vertex presentation with anterior placenta. IMPRESSION: 32 weeks and 2 days gestation with prolonged rupture of membranes. No evidence of acute chorioamnionitis. PLAN: Continue bed rest. Complete course of Flagyl for bacterial vaginosis. Anticipate induction of labor at 34 weeks' gestation (11/30 or 12/01) with second dose of corticosteroids 2 to 4 days prior. Job ID: [id number]
[2018-11-18] MEDS ORDERED: NS w/ Oxytocin 10 units 0 ML ONE (13:24)
[2018-11-18] MEDS: metroNIDAZOLE 500 MG TAB PO SCH ×2 (13:31→21:07)
[2018-11-18] MEDS: Docusate Calcium (SURFAK) 240 MG CAP PO SCH ×2 (13:31→21:07)
[2018-11-18] MEDS: Lactinex Tablet PO SCH (13:31)
[2018-11-18] MEDS: Prenatal Vitamin 1 TAB PO SCH (13:32)
--- NOTE | 2018-11-19 07:16 | PDOC.EVN ---
Event Note - Event Note Event Note: 32 3/7 weeks. Resting, no complaints. VSS AF FHTs remain stable. Plan: Repeat steroids ~11/27/18 with induction of labor on 11/30 or 12/01/18. Deliver before that for chorioamnionitis or concern.
[2018-11-19] MEDS: Lactinex Tablet PO SCH (09:58)
[2018-11-19] MEDS: Docusate Calcium (SURFAK) 240 MG CAP PO SCH ×2 (09:58→21:02)
[2018-11-19] MEDS: Prenatal Vitamin 1 TAB PO SCH (09:58)
[2018-11-19] MEDS: metroNIDAZOLE 500 MG TAB PO SCH ×2 (10:05→21:02)
--- NOTE | 2018-11-20 07:52 | PRG ---
DATE OF SERVICE: 11/20/2018 SUBJECTIVE: The patient is a 33-year-old female, who is now hospital day 36, admitted for premature rupture of membranes at 27 weeks' gestation and is now 32 weeks and 4 days. The patient this morning denies any abdominal pain. Denies vaginal bleeding. Denies feeling ill. Denies fever. OBJECTIVE: VITAL SIGNS: Blood pressure 145/73, heart rate of 89, respiratory rate of 18, and temperature 98.8. GENERAL: The patient is in no acute distress, is alert and oriented, cooperative and pleasant to interact with. HEENT: Head is normocephalic, and atraumatic. ABDOMEN: Soft, gravid, and nontender. EXTREMITIES: Nontender, nonedematous. heart tracing, baseline is noted to be in the 140s with moderate long-term variability. Positive 15 x 15 accelerations. Some irritability seen on the monitor, but nothing felt by the patient. ASSESSMENT AND PLAN: The patient is a 33-year-old female, now hospital day 36, here for premature rupture of membranes, status post steroids, magnesium, and betamethasone. I will continue expectant management until 34 weeks' gestation or signs of abruption or infection or labor. Job ID: [id number]
[2018-11-20] MEDS: Lactinex Tablet PO SCH (09:35)
[2018-11-20] MEDS: metroNIDAZOLE 500 MG TAB PO SCH ×2 (09:35→20:57)
[2018-11-21] MEDS: Docusate Calcium (SURFAK) 240 MG CAP PO SCH ×3 (04:12→22:45)
--- NOTE | 2018-11-21 07:54 | PDOC.EVN ---
Event Note - Event Note Event Note: S: Had some mild cramping overnight, improved now. Denies bleeding or other concerns. Good movement. O: AFVSS Gen - AAO, NAD Abd - soft, gravid, NTTP AM NST pending A/P: 33 y/o at 32w5d, now HD 37, with P3ROM. Continue expectant management. Deliver at 34 weeks or before then if indicated.
[2018-11-21] MEDS: Prenatal Vitamin 1 TAB PO SCH (08:49)
[2018-11-21] MEDS: Lactinex Tablet PO SCH (08:49)
[2018-11-21] MEDS: metroNIDAZOLE 500 MG TAB PO SCH ×2 (08:49→22:45)
--- NOTE | 2018-11-22 08:13 | PRG ---
DATE OF SERVICE: 11/22/2018 PRIMARY OB: [facility]. HISTORY OF PRESENT ILLNESS: The patient is a 33-year-old female who is now hospital day 38, status post premature rupture of membranes with an intrauterine now at 32 weeks and 6 days. The patient denies any abdominal pain, fever, vaginal bleeding. She has otherwise no complaints. PHYSICAL EXAMINATION: VITAL SIGNS: Blood pressure 130/80, heart rate 84, respiratory rate 16, temperature 98.2. GENERAL: She appears to be in no acute distress. She is alert, oriented, cooperative, pleasant to interact with. ABDOMEN: Soft, nontender, and gravid. EXTREMITIES: Nontender, nonedematous. heart tracing and NST performed, baseline is noted to be in the 150s with moderate long-term variability, positive 15 x 15 accelerations, no decelerations of significance and tocometer has no contraction pattern. ASSESSMENT AND PLAN: The patient is a 33-year-old, hospital day 38 for premature rupture of membranes, status post steroids and antibiotics for latency and magnesium for neuroprotection. She is currently taking metronidazole for a positive screen for bacterial vaginosis on 11/16/2018, which should be completing tomorrow. Fetus has a category one tracing and reactive NST. Plan is to continue in-house management with expected induction of labor at 34 weeks. No evidence of abruption, labor, or chorioamnionitis at this time. Job ID: [id number]
[2018-11-22] MEDS: metroNIDAZOLE 500 MG TAB PO SCH (08:30)
[2018-11-22] MEDS: Lactinex Tablet PO SCH (08:30)
--- NOTE | 2018-11-22 12:34 | PDOC.EVN ---
Event Note - Event Note Event Note: Facutly note HD 38....L&D 10 EGA: 32 weeks 6 days Admitted for DX: PPProm States feeling well with most leakage at night, no vb, no additional dsch. Some lower cramping...no fever or chills. Still feels baby move Last BPP was 03/07 due to low fluid NST being done Qday PHYSICAL: Gravid, NT A/P: continue to monitor with plan for IOL at 34 weeks or sooner if fevers. PCN G at time of delivery for EGA and GBS coverage Steroids done No MG for neuroprotection as >32 weeks Completed flagyl for BV on VP3
--- NOTE | 2018-11-23 01:57 | PDOC.EVN ---
Event Note - Event Note Event Note: L&D follow up LDR 10: EGA now33 weeks 0 days Stable condition Vitals reviewed Continue expectant care until 34 weeks Plan of care and plan for IOL reviewed with the patient yesterday at bedside.
[2018-11-23] MEDS: Docusate Calcium (SURFAK) 240 MG CAP PO SCH ×2 (10:18)
[2018-11-23] MEDS: Lactinex Tablet PO SCH (10:18)
--- NOTE | 2018-11-24 07:14 | PDOC.EVN ---
Event Note - Event Note Event Note: 33 1/ weeks. Resting, no complaints. Reports active FM. VSS AF. Testing remains reassuring. Plan: For induction at 34 weeks if undelivered.
[2018-11-24] MEDS: Prenatal Vitamin 1 TAB PO SCH (09:36)
[2018-11-24] MEDS: Docusate Calcium (SURFAK) 240 MG CAP PO SCH (09:36)
[2018-11-24] MEDS: Lactinex Tablet PO SCH (09:36)
--- NOTE | 2018-11-25 07:22 | PRG ---
DATE OF SERVICE: 11/25/2018 TIME OF SERVICE: 0700 hours. SUBJECTIVE: Ms. Putnam is resting comfortably. She is at 37 weeks and 2 days gestation. She reports active fetus. OBJECTIVE: VITAL SIGNS: Temperature 98.3, pulse 85, blood pressure 118/72. HEENT: Within normal limits. LUNGS: Clear to auscultation bilaterally. HEART: Regular rhythm. ABDOMEN: Soft, nontender. No rebound or guarding. FHTs are 140s. Vulva was without lesions. VAGINAL EXAM: Deferred. EXTREMITIES: No clubbing, cyanosis, or edema. Over the past 24 hours, the patient was noted to have an episode of cramping. She was noted to have no vaginal bleeding. The fetus was placed on the monitor, and was noted to be deceleration with initial heart tones in the 90s. They rapidly returned to the 140s to 150s with no subsequent decelerations noted. DIAGNOSIS: 33 weeks and 2 days with prolonged rupture of membranes. PLAN: 1. BPP today. 2. Continue daily NSTs. 3. Repeat betamethasone starting x2 doses. 4. Anticipate induction of labor on Saturday, 11/30 at 34 weeks gestation. 5. The patient understands risks and benefits of induction of labor including elevated risk of delivery secondary to low amniotic fluid. Job ID: [id number]
[2018-11-25] MEDS: Lactinex Tablet PO SCH (09:29)
[2018-11-25] MEDS: Docusate Calcium (SURFAK) 240 MG CAP PO SCH ×2 (09:30→21:13)
[2018-11-25] MEDS: Prenatal Vitamin 1 TAB PO SCH (09:30)
--- NOTE | 2018-11-25 11:47 | ULT ---
BIOPHYSICAL PROFILE: HISTORY: Premature rupture of membranes at 33 weeks. COMPARISON: 11/07/2018 TECHNIQUE: Multiplanar oro-scale and color Doppler images were obtained in a limited ultrasound. FINDINGS: There is a live intrauterine with a heart rate of 157 beats per minute. ABI is 2.8 cm, whi ch is low. The fetus scored 6/8 with a 0 given for amniotic fluid volume. IMPRESSION: 1. Biophysical profile of 6/8. 2. Oligohydramnios. POS: [facility]
[2018-11-26] MEDS: Betamet Acet/Betamet Na Ph 30 MG/5 ML VIAL IM SCH (06:45)
--- NOTE | 2018-11-26 07:53 | PRG ---
DATE OF SERVICE: 11/26/2018 PRIMARY OB: [facility]. SUBJECTIVE: The patient is a 33-year-old female, now hospital day 42 with an intrauterine at 33 weeks and 2 days, being followed for premature rupture of membranes. She is scheduled for induction of labor on Saturday and is in the process of receiving dose of rescue steroids with her first shot being given this morning. The patient reports that she is tolerating p.o. well. She is not having any abdominal pain or bleeding or fever or contractions. OBJECTIVE: VITAL SIGNS: Blood pressure 122/75, heart rate of 85, respiratory rate of 16, and temperature 98.2. GENERAL: She appears to be in no acute distress. She is alert and oriented, cooperative and pleasant to interact with. HEAD: Normocephalic and atraumatic. ABDOMEN: Soft and gravid. EXTREMITIES: Nontender and nonedematous. She had a BPP yesterday of 03/07 to offer fluid and heart tracing. NST for testing for premature rupture of membranes shows a baseline in the 140s with moderate long-term variability and positive 15 x 15 accelerations. No decelerations. Tocometer showing some sporadic contractions. ASSESSMENT AND PLAN: The patient is a 33-year-old female, now hospital day 42 for premature rupture of membranes with an intrauterine at 33 weeks and 2 days. The patient is receiving rescue course of steroids and in preparation for induction of labor on Saturday, should she not have indication for delivery sooner. A GBS has been collected and results are pending. We will continue in-house management. Job ID: [id number]
[2018-11-26] MEDS: Docusate Calcium (SURFAK) 240 MG CAP PO SCH (09:48)
[2018-11-26] MEDS: Lactinex Tablet PO SCH (09:48)
[2018-11-26] MEDS: Prenatal Vitamin 1 TAB PO SCH (09:49)
[2018-11-27] MEDS: Docusate Calcium (SURFAK) 240 MG CAP PO SCH ×2 (00:48→00:49)
[2018-11-27] MEDS: Prenatal Vitamin 1 TAB PO SCH (00:49)
--- NOTE | 2018-11-27 06:14 | PDOC.EVN ---
Event Note - Event Note Event Note: 11/27/18 @ 0600 33.3 weeks Patient sleeping...I am at bedside Per RN, uneventful night VSS afebrile We are now at 33 weeks 3 days GBS pending Second round of steroids given in prep of 34 week inductiion, Saturday Continue plan Check GBS culture (still pending)
[2018-11-27] MEDS: Lactinex Tablet PO SCH (09:06)
[2018-11-27] MEDS: Betamet Acet/Betamet Na Ph 30 MG/5 ML VIAL IM SCH (09:06)
--- NOTE | 2018-11-28 07:13 | PRG ---
DATE OF SERVICE: 11/28/2018 SUBJECTIVE: The patient is a 33-year-old female, admitted to the hospital 44 days ago for premature rupture of membranes. She now has an intrauterine at 33 weeks and 4 days. The patient denies abdominal pain. She states that she has been having some light bleeding. Denies feeling sick or fever. OBJECTIVE: VITAL SIGNS: Blood pressure 125/70, heart rate of 73, respiratory rate of 18, temperature 97.9. GENERAL: She appears to be in no acute distress. She is alert, oriented, cooperative, and pleasant to interact with. HEAD: Normocephalic, atraumatic. ABDOMEN: Gravid, soft, nontender. EXTREMITIES: Nontender, nonedematous. ASSESSMENT AND PLAN: The patient is a 33-year-old female, now hospital day 44 with an intrauterine at 33 weeks and 4 days, admitted for premature rupture of membranes. Plans at this time are to continue in-house management with induction of labor scheduled for Saturday, unless she exhibits symptoms warranting delivery sooner. Fetus is confirmed vertex a couple of days ago. Job ID: [id number]
[2018-11-28] MEDS: Docusate Calcium (SURFAK) 240 MG CAP PO SCH (10:35)
[2018-11-28] MEDS: Lactinex Tablet PO SCH (10:35)
[2018-11-28] MEDS: Prenatal Vitamin 1 TAB PO SCH (10:35)
--- NOTE | 2018-11-29 05:14 | PDOC.EVN ---
Event Note - Event Note Event Note: At bedside 11/29/18 at 0500 33.6 today Doing well, good FM No VB Tomorrow plan is for IOL IOL method will depend on CX exam GBS negative
[2018-11-29] MEDS ORDERED: Lactated Ringer's 500 ML IV SCH (06:30)
[2018-11-29] MEDS ORDERED: Lactated Ringer's 1,000 ML IV SCH (06:30)
[2018-11-29] MEDS: Docusate Calcium (SURFAK) 240 MG CAP PO SCH (15:53)
[2018-11-29] MEDS: Prenatal Vitamin 1 TAB PO SCH (15:53)
[2018-11-29] MEDS: Lactinex Tablet PO SCH (15:53)
[2018-11-30] MEDS ORDERED: Misoprostol 100 MCG TAB VAG SCH
[2018-11-30 01:31] LABS: Hemoglobin 11.7 g/dL (12.0-16.0); Mean Corpuscular HGB CONC 33.6 g/dL (32.0-36.0); Mean Corpuscular Hemoglobin 29.9 pg (27.0-31.0); Mean Platelet Volume 9.3 fL (7.4-10.4); Platelet Count 222 thou/uL (130-400); RBC Distribution Width 11.6 % (11.5-14.5); White Blood Cell (WBC) Count 12.5 thou/uL (4.8-10.8)
[2018-11-30] MEDS ORDERED: NS / Oxytocin 40 units/1000ml 1,000 ML IV SCH ×2 (04:15→06:15)
[2018-11-30] MEDS ORDERED: Lidocaine 1% (PF) 30 ML VIAL ONE (04:23)
[2018-11-30] MEDS ORDERED: Benzocaine/Menthol 20-0.5% 60 ML CAN TOP PRN (06:04)
[2018-11-30] MEDS ORDERED: Misoprostol 200 MCG TAB VAG PRN (06:04)
[2018-11-30] MEDS ORDERED: Lanolin Ointment 7 GM TUBE TOP PRN (06:04)
[2018-11-30] MEDS ORDERED: Preparation H Ointment 28 GM TUBE PR PRN (06:04)
[2018-11-30] MEDS ORDERED: Measles/Mumps/Rubella 10 MCG/0.5 ML VIAL SC ONE (06:04)
[2018-11-30] MEDS ORDERED: Adacel (T-DAP) 0.5 ML SYRINGE IM ONE (06:04)
[2018-11-30] MEDS ORDERED: Milk Of Magnesia 30 ML UDCUP PO PRN (06:04)
[2018-11-30] MEDS ORDERED: Methylergonovine 0.2 MG/ML VIAL IM PRN (06:04)
[2018-11-30] MEDS ORDERED: Promethazine HCl 25 MG/ML VIAL IM PRN (06:04)
[2018-11-30] MEDS ORDERED: Ondansetron PF 4 MG/2 ML Vial IVP PRN (06:04)
[2018-11-30] MEDS ORDERED: Varicella virus, LIVE 0.5 ML VIAL SC ONE (06:04)
[2018-11-30] MEDS ORDERED: diphenhydrAMINE 25 MG CAP PO PRN (06:04)
[2018-11-30] MEDS ORDERED: Bisacodyl 10 MG SUPP PR PRN (06:04)
[2018-11-30] MEDS ORDERED: Acetaminophen 500 MG TAB PO PRN (06:06)
--- NOTE | 2018-11-30 06:11 | PDOC.EVN ---
Event Note - Event Note Event Note: Patient moved to L&D room with painful ctx. Now /2. EFM cat 1. Continue expectant management at this time. GBS neg.
--- NOTE | 2018-11-30 06:14 | PDOC.OPDEL ---
OB Operative/Delivery Note Delivery Dr/Surgeon: Marie Soto MD Pre-Delivery Diagnosis: active labor, ruptured membrane (x 7 weeks) Weeks gestation: 34 Anesthesia: none - Additional Findings/Plan Placenta delivered: spontaneous Repaired Obstetrical Laceration: 1st degree (tiny, hemostatic, no repair necessary) Estimated blood loss: QBL 33ml Compilations/Other Findings: Vigorous male infant delivered in ROP presentation over intact perineum. Cord clamp delayed by 1 minute. "Tony", apgars 8/9. 5lb 9oz. Tiny 1st degree lac at introitus, hemostatic, no repair necessary. Mom and baby doing well. Post delivery plan: routine recovery
[2018-11-30] MEDS ORDERED: Ibuprofen 800 MG TAB PO SCH (06:45)
[2018-11-30] MEDS: Ibuprofen 800 MG TAB PO SCH ×3 (07:00→21:24)
[2018-11-30] MEDS: Docusate Calcium (SURFAK) 240 MG CAP PO SCH ×3 (10:09→21:27)
[2018-11-30] MEDS: Ferrous Sulfate 325 MG TAB PO SCH ×2 (10:09→16:56)
[2018-11-30] MEDS: Prenatal Vitamin 1 TAB PO SCH (10:10)
[2018-12-01] MEDS: Ibuprofen 800 MG TAB PO SCH ×3 (05:51→14:40)
--- NOTE | 2018-12-01 06:27 | PDOC.PP ---
Post Progress Note Post Day #: PPD#1 Subjective: Resting, no complaints. PO intake tolerated: yes Flatus: yes Ambulation: yes Vital Signs (12 hours) Temp Pulse Resp BP BP Pulse Ox 12/01/18 05:52 97 F L 63 16 139/87 12/01/18 00:10 98.1 F 60 16 134/71 11/30/18 20:00 98.3 F 75 16 148/82 H 99 Weight Weight 96.615 kg Most Recent Monitor Data Heart Rate from ECG 111 - Physical Examination General: NAD Respiratory: non-labored breathing Psychiatric: normal affect Result Diagrams: 11/30/18 01:24 11/16/18 08:02 Additional Labs: Post Labs Blood Type A NEGATIVE 11/30/18 01:24 Hep Bs Antigen Non-Reactive S/CO (NonReactive) 10/14/18 22:50 - Assessment/Plan Doing well s/p 34 week . Routine PP care. Home 12/02/18
[2018-12-01] MEDS: Prenatal Vitamin 1 TAB PO SCH (08:44)
[2018-12-01] MEDS: Ferrous Sulfate 325 MG TAB PO SCH ×2 (08:44→14:48)
[2018-12-01] MEDS: Docusate Calcium (SURFAK) 240 MG CAP PO SCH (08:44)
[2018-12-01 09:26] VITALS: TEMP 98.2
[2018-12-01 11:30] VITALS: BP 156/83
== END 2018-12-01 18:28 | disposition home or self-care (01) | DRG 805 ==
LOC: L&D/OP 20:19 → L&D 10-15 00:15 → L&D-LIB 10-16 17:49 → 3SW 10-24 16:56 → L&D-LIB 10-24 18:57 → L&D 11-30 06:12 → 3SW 11-30 08:19
PROVIDERS: ADMIT Obstetrics & Gynecology; ATTEND Obstetrics & Gynecology
PROC: 10E0XZZ Delivery of Products of Conception, External Approach (ICD-10-PCS; principal; 2018-11-30)
DX: O42.112 Preterm premature rupture of membranes, onset of labor more than 24 hours following rupture, second trimester (principal); O60.14X0 Preterm labor third trimester with preterm delivery third trimester, not applicable or unspecified; Z37.0 Single live birth; O23.593 Infection of other part of genital tract in pregnancy, third trimester; O46.93 Antepartum hemorrhage, unspecified, third trimester; Z88.1 Allergy status to other antibiotic agents; Z88.0 Allergy status to penicillin; Z3A.27 27 weeks gestation of pregnancy
CPT/HCPCS: 36415; 36416; 59025; 76815; 76819; 80053; 81003; 82570; 82950; 83735; 84112; 84156; 84443; 85025; 85027; 86780; 86850; 86870; 86900; 86901; 87081; 87340; 87480; 87491; 87510; 87591; 87660; 88307; 90384; 96372; 99285; J0690; J0702; J2001; J3475